=== PATIENT | male | born 1950 | race Caucasian/White ===

== ENCOUNTER → 2023-12-11 13:49 | Outpatient (CLI) | payer MEDICARE, SELFPAY ==
--- NOTE | 2023-12-11 14:42 | EKG_ITS ---
[address] [address] Test Date: 2023-12-11 Pat Name: Betito Arce Department: [facility] Room: Gender: Male Medical Detail Representative: GALDINO : 1950 Requested By: Order Number: [id number] Reading MD: Yao Finley Measurements Intervals [place] Rate: 67 P: 20 NM: 190 QRS: -25 QRSD: 102 T: 59 QT: 398 QTc: 420 Interpretive Statements Normal sinus rhythm Nonspecific T wave abnormality Electronically Signed On 12-18-2023 9:03:11 PDT by Yao Finley
[2023-12-11 14:53] LABS: Hemoglobin A1C% w Est Avg Glu 5.4 % (4.0-6.0)
[2023-12-11 15:02] LABS: Albumin 4.3 g/dL (3.5-5.0); BUN Creatinine Ratio 21.2 (6-22); Blood Urea Nitrogen 39 mg/dL (9-20); Calcium 9.3 mg/dL (8.4-10.2); Carbon Dioxide 29 mmol/L (22-32); Chloride 99 mmol/L (98-107); Estimated Glomerular Filt Rate 38 mL/min (>60); Glucose 118 mg/dL (80-110); HEMOLYSIS < 15 (0-50); Potassium 4.8 mmol/L (3.4-5.1); Sodium 135 mmol/L (137-145)
[2023-12-11 15:14] LABS: Prealbumin 23.6 mg/dL (17.6-36.0)
[2023-12-11 15:19] LABS: Vitamin D 25 Hydroxy (D3) 39.3 ng/mL (30.0-100.0)
[2023-12-11 18:30] LABS: Add Manual Diff / Slide Review NO; Basophils Absolute Auto 0 /uL (0-100); Basophils Percent Auto 0.3 % (0-2); Eosinophils Absolute Auto 100 /uL (0-450); Eosinophils Percent Auto 0.8 % (2-4); Hematocrit 36.3 % (41-53); Hemoglobin 12.4 g/dL (13.5-17.5); Lymphocytes Absolute Auto 1000 /uL (1100-4500); Lymphocytes Percent Auto 15.9 % (25-40); Mean Corpuscular HGB Conc 34.3 % (30-36); Mean Corpuscular Hemoglobin 30.2 PG (26-34); Mean Corpuscular Volume 88.1 fL (80-100); Monocytes Absolute Auto 500 /uL (0-900); Monocytes Percent Auto 7.9 % (3-14); Neutrophils Absolute Auto 4800 /uL (1500-7000); Neutrophils Percent Auto 75.1 % (50-75); Platelet Count 212 X10^3/uL (150-400); Red Blood Cell Count 4.12 X10^6/uL (4.5-5.9); Red Cell Distribution Width 14.8 % (11.6-14.8); White Blood Cell Count 6.4 X10^3/uL (4.5-11.0)
== END ==
LOC: LAB 13:52
PROVIDERS: PCP Family Medicine; Referring Provider Orthopaedic Surgery Adult Reconstructive Orthopaedic Surgery; Visit Provider Orthopaedic Surgery Adult Reconstructive Orthopaedic Surgery
DX: Z01.818 Encounter for other preprocedural examination (principal); R73.9 Hyperglycemia, unspecified; E55.9 Vitamin D deficiency, unspecified; R77.0 Abnormality of albumin; Z01.812 Encounter for preprocedural laboratory examination
CPT/HCPCS: 36415; 80048; 82040; 82306; 83036; 84134; 85025; 93005

== ENCOUNTER 2025-02-27 13:50 | Emergency (ER) | payer MEDICARE, OTHER, SELFPAY ==
[2025-02-27 14:12] VITALS: BP 170/93; PULSE 74; RESP 18; TEMP 37.1; O2SAT 96; BMI 22.1
--- NOTE | 2025-02-27 14:28 | DI.CT.S_ITS ---
PROCEDURE: CT ABDOMEN PELVIS W CON
--- NOTE | 2025-02-27 14:30 | ED_ITS ---
HPI - Male Genitourinary
--- NOTE | 2025-02-27 14:30 | ED.MALEGU ---
HPI - Male Genitourinary General Chief complaint: Urogenital-Male Stated complaint: Kidney stone issues Time Seen by Provider: 02/27/25 14:17 Source: patient Mode of arrival: Ambulatory History of Present Illness HPI Narrative: 74-year-old male history hypertension, dyslipidemia, psoriatic arthritis, migraines, GERD, peripheral neuropathy, bowel resection, diverticulitis status post hemicolectomy, with a history of kidney stones since with right flank pain radiating to right lower quadrant since last night with multiple episodes of nonbilious nonbloody nausea, vomiting reminiscent of kidney stone attack in the past. Other than what is stated 14 point review of system is negative. Related Data Home Medications ?Medication ?Instructions ?Recorded ?Confirmed VITAMIN D (SCHMIDT VITAMIN D) 2,000 iu PO ##0 12/22/10 ustekinumab 90 mg/mL subcutaneous 90 mg SQ [id number] ##0 10/18/16 syringe (Stelara) Previous Rx's ?Medication ?Instructions ?Recorded sumatriptan succinate 4 mg/0.5 mL 4 mg (0.5 mL) SQ PRN PRN #1 ea 09/02/16 subcutaneous pen injector (Imitrex STATdose Pen) sumatriptan succinate 100 mg 100 mg PO PRN PRN #9 tabs 12/01/16 tablet (Imitrex) ondansetron 4 mg disintegrating 4 mg sublingual Q4HP PRN ##15 04/21/17 tablet (Zofran ODT) oxycodone-acetaminophen 5 mg-325 1 tab PO Q4HP PRN #15 tabs 04/21/17 mg tablet (Percocet) tamsulosin 0.4 mg capsule (Flomax) 0.4 mg PO Q DAY #7 caps 04/21/17 ketorolac 10 mg tablet 10 mg PO Q6H PRN pain #20 tabs 02/27/25 tamsulosin 0.4 mg capsule (Flomax) 0.4 mg PO DAILY #30 caps 02/27/25 Allergies Allergy/AdvReac Type Severity Reaction Status Date / Time oxycodone Allergy Unknown Verified 10/18/18 14:04 codeine AdvReac Unknown Verified 10/18/18 14:04 Review of Systems Review of Systems ROS Unobtainable: All systems reviewed & are unremarkable except as noted in HPI and below Patient History Family History (Updated 07/09/16 @ 00:00 by Conversion Provider) Brother Age: 77 Hypertension High cholesterol Father Heart disease Mother Cancer Grandfather Cancer Sister Age: 75 Mental health problem Social History Smoking Status: Never smoker Smoking Status: Never smoker Exam Narrative Exam Narrative: GENERAL: [74] year old patient appears stated age. Well-developed patient, in mild distress. HEAD: Atraumatic. Normocephalic. EYES: Pupils equal round and reactive. Extraocular motions intact. No scleral icterus. No injection or drainage. ENT: Nose without bleeding, purulent drainage. Throat without erythema, tonsillar hypertrophy or exudate. Airway patent. NECK: Trachea midline. Non tender CARDIOVASCULAR: Regular rate and rhythm without murmurs, gallops, or rubs. RESPIRATORY: Clear to auscultation. Breath sounds equal bilaterally. No wheezes, rales, or rhonchi. GASTROINTESTINAL: Abdomen soft, non-tender, nondistended. EXTREMITIES: No edema or joint tenderness. BACK: Nontender without deformity or crepitance. No flank tenderness. NEURO: AOx3. SKIN: No rash or erythema of visible areas Initial Vital Signs Initial Vital Signs: Vital Signs Temperature 98.7 F 02/27/25 14:12 Pulse Rate 74 02/27/25 14:12 Respiratory Rate 18 02/27/25 14:12 Blood Pressure 170/93 H 02/27/25 14:12 Pulse Oximetry 96 02/27/25 14:12 Oxygen Delivery Method Room Air 02/27/25 14:12 Course Orders Ordered: ED Orders 02/27/25 14:03 Urine Culture Stat Urine Microscopic Stat 02/27/25 14:26 Complete Blood Count AUTO DIFF Stat Comprehensive Metabolic Panel Stat Lipase Stat 02/27/25 14:28 CT abdomen pelvis w con Stat EKG-12 Lead Stat Ondansetron HCl (Ondansetron 4 Mg/2 Ml Inj) 4 mg IV NOW PRN PRN Reason: Nausea And Vomiting Ondansetron HCl (Ondansetron 4 Mg Odt) 4 mg PO NOW PRN PRN Reason: Nausea And Vomiting Discontinued Medications Lactated Ringer's (Lactated Ringers) 1,000 mls @ 1,000 mls/hr IV BOLUS ONE Stop: 02/27/25 15:28 Last Infusion: 02/27/25 16:09 Dose: Infused Documented By: Admin: 02/27/25 15:02 Dose: 1,000 mls/hr Documented By: ESTHER Ketorolac Tromethamine (Ketorolac 30 Mg/Ml Vial) 15 mg IV NOW ONE Stop: 02/27/25 14:30 Last Admin: 02/27/25 15:01 Dose: 15 mg Documented By: ESTHER Vital Signs Vital signs: Vital Signs - 8 hr 02/27/25 14:12 Temperature 98.7 F Pulse Rate 74 Respiratory Rate 18 Blood Pressure 170/93 H Pulse Oximetry 96 Oxygen Delivery Method Room Air MDM - Male Genitourinary Lab Data 02/27/25 14:26 02/27/25 14:26 Labs: Lab Results 02/27/25 02/27/25 Range/Units 14:03 14:26 WBC 8.2 (4.5-11.0) X10^3/uL RBC 5.08 (4.5-5.9) X10^6/uL Hgb 15.2 (13.5-17.5) g/dL Hct 43.7 (41-53) % MCV 86.1 (80-100) fL MCH 29.9 (26-34) PG MCHC 34.8 (30-36) % RDW 14.1 (11.6-14.8) % Plt Count 273 (150-400) X10^3/uL Neut % (Auto) 75.3 H (50-75) % Lymph % (Auto) 15.3 L (25-40) % [place] % (Auto) 8.5 (3-14) % Eos % (Auto) 0.7 L (2-4) % Baso % (Auto) 0.2 (0-2) % Neut # (Auto) 6100 (5907-9957) /uL Lymph # (Auto) 1300 (0065-9413) /uL [place] # (Auto) 700 (0-900) /uL Eos # (Auto) 100 (0-450) /uL Baso # (Auto) 0 (0-100) /uL Sodium 139 (137-145) mmol/L Potassium 4.1 (3.4-5.1) mmol/L Chloride 100 (98-107) mmol/L Carbon Dioxide 29 (22-32) mmol/L BUN 32 H (9-20) mg/dL Creatinine 1.06 (0.66-1.25) mg/dL Estimated GFR > 60 (>60) mL/min BUN/Creatinine Ratio 30.2 H (6-22) Glucose 95 (70-99) mg/dL Calcium 9.5 (8.4-10.2) mg/dL Total Bilirubin 0.8 (0.2-1.3) mg/dL AST 29 (17-59) IU/L ALT 19 (<50) IU/L Alkaline Phosphatase 103 (38-126) U/L Total Protein 8.3 H (6.3-8.2) g/dL Albumin 5.0 (3.5-5.0) g/dL Globulin 3.3 (1.7-4.1) g/dL Albumin/Globulin Ratio 1.5 (1.0-2.8) Lipase 255 (23-300) U/L Urine RBC 5-10/hpf H (0-5/HPF) Urine WBC 0-1/hpf (0-5/HPF) Ur Squamous Epith Cells 0-1 /hpf (0-5/HPF) Calcium Oxalate Crystal Few H Urine Bacteria None seen (None) Ur Culture Indicated? Cult not indicated Vol Urine Centrifuged 10ml (spun) Urine Dip Bedside Urine Glucose Negative Bedside Urine Bilirubin - Negative Bedside Urine Ketone - Negative Urine Specific [place] 1.015 Bedside Urine Occult Blood ++ Bedside Urine pH 6.0 Bedside Urine Protein +/- 15 Bedside Urine Urobilinogen - Negative Bedside Urine Nitrite - Negative Bedside Urine Leukocytes - Negative Esterase Imaging Data CT scan - abdomen/pelvis: Radiologist's Impression: [place] [address] CT Scan Report Signed Patient: Betito Arce MR#: [id number] : 1950 Acct:[id number] Age/Sex: 74 / M Date of Service: 02/27/25 Loc: ED Accession Number: [id number] Procedure: CT abdomen pelvis w con Ordering Provider: Attila Nava D.O. PROCEDURE: CT ABDOMEN PELVIS W CON INDICATIONS: R flank RLQ pain n/v TECHNIQUE: After the administration of intravenous contrast, axial sections acquired from the lung bases to the pubic symphysis. Coronal and sagittal reformats were performed. For radiation dose reduction, the following was used: automated exposure control, adjustment of mA and/or kV according to patient size. COMPARISON: None. FINDINGS: Image quality: Diagnostic. Lower Chest: Possible rounded atelectasis at the right posterior middle lobe. No effusion. ABDOMEN: Liver: No solid mass. Gallbladder: No radiopaque gallstones or wall thickening. Biliary ducts: No biliary dilation. Pancreas: No ductal dilation. Spleen: Size is within normal limits. Adrenal Glands: No adrenal nodules. Kidneys and Ureters: Right UVJ stone measuring 4.5 mm with upstream hydroureter the and mild to moderate hydronephrosis. Additional nonobstructing renal calculi bilaterally . Stomach and Bowel: Normal colonic caliber, without significant wall thickening. Peritoneum: No abnormal intraperitoneal fluid. No free air. Ventral Wall: No significant ventral hernia. Abdominal Nodes: No retroperitoneal or mesenteric adenopathy by size criteria. Vessels: Aorta and inferior vena cava are normal in size. PELVIS: Pelvic Organs: Unremarkable. Bladder: No bladder wall thickening, accounting for underdistention. Pelvic Nodes: No enlarged lymph nodes. Miscellaneous: No inguinal hernias are seen. Bones: No aggressive osseous abnormality. Enchondroma left femur intertrochanteric region measuring up to 1.2 cm. Severe degenerative changes of the lumbar spine. Incompletely healed fractures of right 7 and 8 ribs laterally. IMPRESSION: Obstructing right UVJ calculus with mild to moderate right hydronephrosis measuring approximately 4.5 mm. Incompletely healed right 7th and 8th rib fractures. Probable round atelectasis along the right lower lobe posterior pleura. Three-month follow-up examination with CT chest recommended. Dictated by: Lan Todd M.D. on 02/27/2025 at 16:18 Approved by: Lan Todd M.D. on 02/27/2025 at 16:27 [facility] Narrative Medical decision making narrative: All lab work, vital signs, nurse triage note, medication list, previous ER visits, and all imaging studies reviewed. WBC 0.2 hemoglobin 15.2 platelet 273 sodium 139 and 4.1 CO2 29 chloride 100 BUN 13 creatinine 1.06 glucose 95 LFTs normal lipase 255 urine showed 5-10 RBC calcium oxalate crystals.. CT scan showed obstructing right UVJ calculus with [id number] right hydronephrosis measuring approximately 4.5 mm. Incompletely healed right. 7th and 8th rib fractures probable round atelectasis along the right lower. Lobe posterior pleura three-month follow up examination with CT chest recommended. Patient will be sent home on Christopher Flomax strainer follow up with urologist. Discharge Plan Departure Patient Disposition: Home Clinical Impression: Kidney stone Instructions: DI for Kidney Stones Activity Restrictions/Additional Instructions: Return with new or worsening symptoms. F/U with Urologist MD next week with Urologist at on Monday ? Keep hydrated. Prescriptions: New tamsulosin [Flomax] 0.4 mg capsule 0.4 mg PO DAILY Qty: 30 0RF ketorolac 10 mg tablet 10 mg PO Q6H PRN (Reason: pain) Qty: 20 0RF Rx Instructions: maximum total duration of 5 days from all oral, intranasal, or parenteral formulations No Action VITAMIN D (SCHMIDT VITAMIN D) 2,000 iu PO Qty: 0 sumatriptan succinate [Imitrex STATdose Pen] 4 MG/0.5 ML pen injector 4 mg SQ PRN PRNQty: 1 3RF ustekinumab [Stelara] 90 MG/1 ML syringe 90 mg SQ [id number] Qty: 0 sumatriptan succinate [Imitrex] 100 MG tablet 100 mg PO PRN PRNQty: 9 1RF oxycodone-acetaminophen [Percocet] 5 MG/325 MG tablet 1 tab PO Q4HP PRNQty: 15 0RF tamsulosin [Flomax] 0.4 MG capsule,extended release 24hr 0.4 mg PO Q DAY Qty: 7 0RF ondansetron [Zofran ODT] 4 MG tablet,disintegrating 4 mg Sublingual Q4HP PRNQty: 15 0RF Referrals: Jorden Diana DO [Physician, Urology] Chiki Hines PA-C [Primary Care Provider, Medical] Stand Alone Forms: Patient Portal/API
[2025-02-27 14:34] LABS: Culture Indicated Urine Cult Not Indicated
[2025-02-27 14:44] LABS: Add Manual Diff / Slide Review NO; Hematocrit 43.7 % (41-53); Hemoglobin 15.2 g/dL (13.5-17.5); Lymphocytes Absolute Auto 1300 /uL (1100-4500); Mean Corpuscular HGB Conc 34.8 % (30-36); Mean Corpuscular Hemoglobin 29.9 PG (26-34); Mean Corpuscular Volume 86.1 fL (80-100); Platelet Count 273 X10^3/uL (150-400)
[2025-02-27 14:51] LABS: Alanine Aminotransferase 19 IU/L (<50); Albumin 5.0 g/dL (3.5-5.0); Albumin Globulin Ratio 1.5 (1.0-2.8); Alkaline Phosphatase 103 U/L (38-126); Blood Urea Nitrogen 32 mg/dL (9-20); Calcium 9.5 mg/dL (8.4-10.2); Carbon Dioxide 29 mmol/L (22-32); Chloride 100 mmol/L (98-107); Estimated Glomerular Filt Rate > 60 mL/min (>60); Globulin 3.3 g/dL (1.7-4.1); Glucose 95 mg/dL (70-99); HEMOLYSIS 35 (0-50); Lipase 255 U/L (23-300); Potassium 4.1 mmol/L (3.4-5.1); Sodium 139 mmol/L (137-145); Total Protein 8.3 g/dL (6.3-8.2)
[2025-02-27] MEDS: KETOROLAC 30 MG/ML VIAL 15 MG IV ×2 (15:01→17:03)
[2025-02-27] MEDS: LACTATED RINGERS 1,000 ML 1000 ML IV (15:02)
[2025-02-27] MEDS: TAMSULOSIN 0.4 MG CAPSULE PO (17:02)
[2025-02-27 17:19] VITALS: BP 179/87; PULSE 70; RESP 18; O2SAT 98
== END 2025-02-27 17:15 | disposition home or self-care (01) ==
PROVIDERS: Physician Assistant; Emergency Provider Family Medicine; PCP Physician Assistant
DX: N20.0 Calculus of kidney (principal); Z87.442 Personal history of urinary calculi
CPT/HCPCS: 36415; 74177; 80053; 81003; 81015; 83690; 85025; 87086; 96361; 96374; 96376; 99284; J1885; J7120; Q9967